=== PATIENT | male | born 1970 | race Caucasian/White ===

== ENCOUNTER → 2018-10-31 14:02 | Outpatient (CLI) | payer OTHER ==
--- NOTE | 2018-11-15 08:49 | ST ---
PATIENT:ALEJANDRO BARRERA MEDICAL RECORD: [id number] SEX: M LOCATION:[facility] ORDER #: ADMISSION DATE: 10/31/18 AGE OF PATIENT: 48 REFERRING PHYSICIAN: INTERPRETING PHYSICIAN: CANDELARIO PERKINS MD DATE OF SERVICE: 10/31/2018 PROCEDURE: Treadmill stress test. Baseline ECG is normal. Exercised for 6 minutes and 40 seconds under Lebron protocol. Maximum heart rate 100 beats per minute, 85% of max predicted. No ECG change for ischemia. No symptoms of ischemia. Normal blood pressure response to exercise. Fair exercise tolerance. TRANSINT:[id number] Voice Confirmation ID: [id number] DOCUMENT ID: [id number] CANDELARIO PERKINS MD at 0849 CC: [id number] DICTATION DATE: 11/09/18 1324 CARRIAGE DOGGER: 11/09/18 1413 [facility] CLI 10/31/[address] [id number]
== END | disposition home or self-care (01) ==
LOC: D.HCCARDIO 14:02
PROVIDERS: ATTEND Internal Medicine Interventional Cardiology
DX: R00.2 Palpitations (principal)